=== PATIENT | male | born 2000 | race Caucasian/White ===

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

== ENCOUNTER → 2020-11-08 | Outpatient (CLI) | payer BC ==
[~2020-11-08] MED LIST changes: +BACTRIM DS 8001 TAB PO; +CONCERTA36 MG PO
== END ==
LOC: COL.RAD 07:25
DX: S43.431A Superior glenoid labrum lesion of right shoulder, initial encounter (principal)
CPT/HCPCS: A9585; Q9967